=== PATIENT | male | born 1995 | race Two or more races ===

== ENCOUNTER 2019-12-31 04:57 | Emergency (ER) | payer OTHER ==
[~2019-12-31] VITALS: Ht 185.4 cm; Wt 72.6 kg
[2019-12-31] MEDS ORDERED: VENTOLIN HFA18 GM (05:11)
[2019-12-31] MEDS ORDERED: ZITHROMAX500 MG PO (07:43)
[2019-12-31] MEDS ORDERED: SYMBICORT 16010.2 GM IH (07:43)
== END 2019-12-31 07:59 | disposition home or self-care (01) ==
LOC: ER 04:57
DX: J45.901 Unspecified asthma with (acute) exacerbation (principal); B96.0 Mycoplasma pneumoniae [M. pneumoniae] as the cause of diseases classified elsewhere; J06.9 Acute upper respiratory infection, unspecified; R06.02 Shortness of breath